=== PATIENT | female | born 1965 | race Caucasian/White ===

== ENCOUNTER 2021-07-03 09:43 | Inpatient (IN) | payer BC, MEDICAID ==
[~2021-07-03] VITALS: Ht 151.1 cm; Wt 48.5 kg
[2021-07-03 09:50] VITALS: BP 135/88
--- NOTE | 2021-07-03 09:55 | NUR ---
PT AMBULATED TO ER BED 2 WITH WOOD FLOORING SPECIALIST.
--- NOTE | 2021-07-03 10:02 | NUR ---
55 Y/O FEMALE BIB DIRECTOR OF REHABILITATION AND WELLNESS (MARIA LUISA OBRIEN). PER DIRECTOR OF REHABILITATION AND WELLNESS PT WAS FOUND ON THE SIDEWALK. DIRECTOR OF REHABILITATION AND WELLNESS REPORTS PT TOLD HIM THAT SHE FELL AND HIT HER HEAD. PT IS A&O X2 TO NAME AND . PT IS CONFUSED AND IS UNABLE TO PROVIDE A HISTORY. PT WALKS WITH A STEADY GAIT. PT DOES HAVE MULTIPLE LACERATIONS ON FACE. BED IN LOWEST POSITION. BED RAIL X1. PMH:UNABLE TO OBTAIN MEDS:UNABLE TO OBTAIN ALLERGIES: UNABLE TO OBTAIN
[2021-07-03 10:45] LABS: BASOPHILS % (AUTO) 0.7 % (0.0-2.0); EOSINOPHILS # (AUTO) 0.2 K/uL (0-0.4); EOSINOPHILS % (AUTO) 6.8 % (0.0-4.0); HEMATOCRIT 37.1 % (36-48); HEMOGLOBIN 12.1 g/dL (12.0-16.0); LYMPHOCYTES # (AUTO) 0.8 K/uL (2.5-16.5); LYMPHOCYTES % (AUTO) 28.8 % (20.5-51.1); MEAN CORPUSCULAR HEMOGLOBIN 28 pg (27-31); MEAN CORPUSCULAR HGB CONC 33 g/dL (33-37); MEAN CORPUSCULAR VOLUME 86.8 fL (80-94); MONOCYTES # (AUTO) 0.6 K/uL (0.8-1.0); MONOCYTES % (AUTO) 22.4 % (1.7-9.3); NEUTROPHILS # (AUTO) 1.1 K/uL (1.8-7.7); NEUTROPHILS % (AUTO) 41.3 % (42.2-75.2); PLATELET COUNT (AUTO) 294 K/uL (140-450); RED BLOOD CELL COUNT(AUTO) 4.28 MIL/uL (4.20-5.40); RED CELL DISTRIBUTION WIDTH 16.6 % (11.6-13.7); WHITE BLOOD COUNT (AUTO) 2.6 K/uL (4.8-10.8)
--- NOTE | 2021-07-03 10:58 | NUR ---
TAKEN TO CT VIA WC
[2021-07-03 11:15] LABS: ALBUMIN 3.2 g/dL (3.4-5.0); ANION GAP 9.8 (8-16); ASPARTATE AMINOTRANSFERASE 97 U/L (15-37); CARBON DIOXIDE 29.6 mmol/L (21-32); CHLORIDE 102 mmol/L (98-107); CREATININE 0.7 mg/dL (0.6-1.3); GFR ARICAN-AMERICAN 112 mL/min (>90); GLUCOSE 89 mg/dL (74-106); POTASSIUM 3.4 mmol/L (3.5-5.1); SODIUM SERUM 138 mmol/L (136-145); TOTAL BILIRUBIN 0.6 mg/dL (0.0-1.0); UREA NITROGEN, BLOOD 13 mg/dL (7-18)
[2021-07-03 11:16] LABS: SALICYLATE < 2.8 mg/dL (2.8-20.0)
[2021-07-03 11:50] LABS: BARBITURATE, URINE NEGATIVE ng/ml (NEG <=200); BENZODIAZEPINE, URINE NEGATIVE ng/mL (NEG <=200); CANNABINOID, URINE NEGATIVE ng/mL (NEG <=50); COCAINE, URINE NEGATIVE ng/mL (NEG <=300); OPIATE, URINE NEGATIVE ng/mL (NEG <=2000); PHENCYCLIDINE SCREEN,URINE NEGATIVE ng/mL (NEG <=25)
[2021-07-03 11:51] LABS: ACETAMINOPHEN < 0.5 ug/ml (10-30)
--- NOTE | 2021-07-03 12:00 | NUR ---
PT ON TELEPSYCH APPT. WITH
--- NOTE | 2021-07-03 13:20 | NUR ---
PT MOVED TO ER BED 5, BED CLOSER TO NURSING STATION.
--- NOTE | 2021-07-03 13:45 | NUR ---
ADAM MEDINA AND TIERNEY WALKED TO LAB
--- NOTE | 2021-07-03 14:01 | NUR ---
TRANSFER OF CARE TO BERTRAND LYNN.
--- NOTE | 2021-07-03 14:04 | NUR ---
ASSUMED CARE AT THIS TIME.
--- NOTE | 2021-07-03 16:00 | NUR ---
PATIENT SITTING QUIETLY IN BED WITH EYES OPEN, WILL CONTINUE TO MONITOR.
--- NOTE | 2021-07-03 18:00 | NUR ---
PATIENT PROVIDED WITH DINNER TRAY, SITTING UP IN BED EATING. WILL CONTINUE TO MONITOR.
--- NOTE | 2021-07-03 19:24 | NUR ---
Pt report given to MARLENY DEE. Transfer of care at this time.
--- NOTE | 2021-07-03 20:01 | NUR ---
Seng tello in EDM - 07/03/21 at 2001 by TRACYJDevin spoke with pt. explained 4010 to and what he should expect. pt denies any si thoughts at this time
--- NOTE | 2021-07-03 20:03 | NUR ---
spoke with pt , pt a&o x2 . pt is verbalizing a word salad . x2 side rails up for safety
--- NOTE | 2021-07-03 23:00 | NUR ---
Patient appears to be resting comfortably in bed. Vital Signs within normal limits. Respirations even and unlabored.
--- NOTE | 2021-07-04 02:45 | NUR ---
pt getting up out of bed. head twitching. pt ambulating. had to redirect pt back to bed. reorient pt with food. pt seems to be content at this time. all needs met at this time
--- NOTE | 2021-07-04 03:26 | NUR ---
Patient appears to be resting awake comfortably in bed. Vital Signs within normal limits. Respirations even and unlabored.
--- NOTE | 2021-07-04 03:55 | NUR ---
PT IS AMBULATING BACK AND FORTH. AGITATED BEHAVIOR. PT IS MAKING SOUNDS
[2021-07-04] MEDS ORDERED: LORazepam 2 MG/ML VIAL IM ONE (04:00)
--- NOTE | 2021-07-04 05:00 | NUR ---
PT BEHACING APPROPRIATELY. NO NEED TO GIVE ATIVAN AT THIS TIME. PT BEHABING APPROPIATELY. SITTING IN BED
--- NOTE | 2021-07-04 06:59 | NUR ---
provided pt with washcloths to wash face .
--- NOTE | 2021-07-04 07:13 | NUR ---
Pt report given to darrick harvey. Transfer of care at this time.
--- NOTE | 2021-07-04 07:23 | NUR ---
RECIEVED REPORT FROM MARLENY DEE. ASSUMED CARE
--- NOTE | 2021-07-04 08:00 | NUR ---
pt awake and restless at this time. pt was given safe tray breakfast at bedside.
--- NOTE | 2021-07-04 08:15 | NUR ---
pt finished complete breakfast at this time. pt resting at this time, unlabored respirations, no visible distress.
[2021-07-04] MEDS ORDERED: OLANZapine 5 MG ODT PO ONE (09:00)
--- NOTE | 2021-07-04 10:00 | NUR ---
PT RE TELEPSYCHED. WILL CONTINUE PT RX OF ZYPREXA AND PLAN ON MOVING PT TO PSYCHIATRIC UNIT.
--- NOTE | 2021-07-04 10:06 | NUR ---
PT RE TELEPSYCHED. WILL CONTINUE PT RX OF ZYPREXA AND PLAN ON MOVING PT TO PSYCHIATRIC UNIT.
[2021-07-04 11:00] VITALS: BP 111/43
--- NOTE | 2021-07-04 11:00 | NUR ---
RECEIVED BEDSIDE REPORT FROM ED NURSE FOR CONTINUITY OF CARE. PT ADAM NEGATIVE. ED NURSE STATED THAT PSYCH EVALUATION PERFORMED IN ED THAT THEY WILL FOND A PSYCH FACILITY TO TRANSFER PATIENT TO FOR CARE. PT AOX1-2. PT IS ON ROOM AIR. PT HAS NO IV. PT BREATHING IS EVEN AND UNLABORED. NO SIGNS OF DISTRESS NOTED. ON MEDSURG. BED LOW AND IN LOCKED POSITION. ALL PRECAUTIONS IN PLACE. PT IS STABLE.
--- NOTE | 2021-07-04 11:00 | NUR ---
Patient will be admitted to care of DR SHASHANK KUMAR. Admited to [facility]. Will go to [facility]. Belongings list completed. Report to DOMENICO LYNN.
[2021-07-04] MEDS ORDERED: HYDROcodone/APAP 7.5/325 MG 1 TAB PO PRN (12:35)
[2021-07-04] MEDS ORDERED: DOCUSATE SODIUM 100 MG GELCAP PO PRN (12:35)
[2021-07-04] MEDS: NACL 0.9% 1,000 ML IV SCH (12:35)
[2021-07-04] MEDS ORDERED: ACETAMINOPHEN 325 MG TAB PO PRN (12:35)
[2021-07-04] MEDS ORDERED: POTASSIUM CHLORIDE 10 MEQ TABER PO PRN (12:35)
[2021-07-04] MEDS ORDERED: ONDANSETRON 4 MG/2 ML VIAL IM/IVP PRN (12:35)
[2021-07-04] MEDS ORDERED: ZOLPIDEM 5 MG TAB PO PRN (12:35)
[2021-07-04] MEDS ORDERED: guaiFENesin DM 200/20 MG-10 ML 10 ML UDC PO PRN (12:35)
[2021-07-04 13:31] LABS: PROTHROMBIN TIME 10.5 secs (10.8-13.4)
--- NOTE | 2021-07-04 14:00 | NUR ---
PT IS SOUND ASLEEP. PT AOX1-2. PT IS ON ROOM AIR. PLACED IV ON RIGHT WRIST 22G. RUNNING NS. PT BREATHING IS EVEN AND UNLABORED. NO SIGNS OF DISTRESS NOTED. ON MEDSURG. BED LOW AND IN LOCKED POSITION. ALL PRECAUTIONS IN PLACE. PT IS STABLE.
[2021-07-04 15:34] LABS: AMYLASE 63 U/L (25-115); CHOL/HDL RATIO 2.6 (1-4.5); FREE T4 (FREE THYROXINE) 1.05 ng/dL (0.76-1.46); HDL CHOLESTEROL 34 mg/dL (40-60); LDL (CALC) 39 mg/dL (60-100); LIPASE 157 U/L (73-393); PHOSPHORUS 4.6 mg/dL (2.5-4.9); THYROID STIMULATING HORMONE 0.54 uIU/mL (0.34-3.74); TRIGLYCERIDES 78 mg/dL (30-150)
[2021-07-04 16:00] VITALS: BP 89/49
--- NOTE | 2021-07-04 18:24 | NUR ---
PT IS NOW MORE AWAKE. STATES SHE DOES NOT WANT TO BE HERE AND NEEDS TO LEAVE. PT AOX2. PT IS ON ROOM AIR. IV ON RIGHT WRIST 22G. RUNNING NS. PT BREATHING IS EVEN AND UNLABORED. NO SIGNS OF DISTRESS NOTED. ON MEDSURG. BED LOW AND IN LOCKED POSITION. ALL PRECAUTIONS IN PLACE. PT IS STABLE.
[2021-07-04 19:27] LABS: APPEARANCE,URINE CLEAR (CLEAR); BILIRUBIN,URINE NEGATIVE (NEGATIVE); BLOOD, URINE NEGATIVE (NEGATIVE); COLOR,URINE YELLOW (YELLOW); LEUKOCYTE ESTERASE ,URINE TRACE (NEGATIVE); NITRITE, URINE NEGATIVE (NEGATIVE); UGLUCOSE NEGATIVE (NEGATIVE)
--- NOTE | 2021-07-04 19:40 | NUR ---
PT ENDORSED TO SPOT WASHER FOR CONTINUITY OF CARE. POC DISCUSSED.
--- NOTE | 2021-07-04 19:41 | NUR ---
RECEIVED REPORT FROM MORNING SHIFT NURSE. PATIENT AWAKE AMBULATING AROUND HER ROOM. NO ACUTE DISTRESS. BREATHING REGULAR NON LABORED. SAFETY MEASURES IN PLACE. NO COMPLAINTS OF PAIN AT THIS TIME. WILL CONTINUE TO MONITOR PT.
[2021-07-04 20:30] LABS: RBC,URINE 0-5 /HPF (0-5); WBC,URINE 0-5 /HPF (0-5)
--- NOTE | 2021-07-04 23:00 | NUR ---
CHECKED PATIENT, PT IS SLEEPING. OBSERVED CHEST RISE AND FALL SYMMETRICALLY. WITH 1:1 SITTER.
--- NOTE | 2021-07-04 23:54 | NUR ---
Call center at this time still looking for placement , At this time there are no vacancy at any of the designated facilities will continue to make calls then notify ER when placement is found .
--- NOTE | 2021-07-05 01:11 | NUR ---
PATIENT IS AWAKE, PULLED OUT HER IV LINE. REFUSED REINSERTION.
[2021-07-05 01:15] VITALS: BP 105/64
--- NOTE | 2021-07-05 03:50 | NUR ---
PATIENT IS SLEEPING. CHEST RISE AND FALL SYMMETRICALLY. IN LOW BED POSITION.
[2021-07-05] MEDS: NACL 0.9% 1,000 ML IV SCH (05:15)
[2021-07-05 06:48] LABS: ANION GAP 9.4 (8-16); CARBON DIOXIDE 26.5 mmol/L (21-32); CREATININE 0.6 mg/dL (0.6-1.3); POTASSIUM 3.9 mmol/L (3.5-5.1)
[2021-07-05 06:49] LABS: BASOPHILS % (AUTO) 0.4 % (0.0-2.0); EOSINOPHILS # (AUTO) 0.2 K/uL (0-0.4); EOSINOPHILS % (AUTO) 3.9 % (0.0-4.0); HEMATOCRIT 34.7 % (36-48); HEMOGLOBIN 11.3 g/dL (12.0-16.0); LYMPHOCYTES # (AUTO) 1.4 K/uL (2.5-16.5); LYMPHOCYTES % (AUTO) 35.4 % (20.5-51.1); MEAN CORPUSCULAR HEMOGLOBIN 28 pg (27-31); MEAN CORPUSCULAR HGB CONC 33 g/dL (33-37); MEAN CORPUSCULAR VOLUME 87.6 fL (80-94); MONOCYTES # (AUTO) 0.8 K/uL (0.8-1.0); MONOCYTES % (AUTO) 21.5 % (1.7-9.3); NEUTROPHILS # (AUTO) 1.5 K/uL (1.8-7.7); NEUTROPHILS % (AUTO) 38.8 % (42.2-75.2); PLATELET COUNT (AUTO) 268 K/uL (140-450); RED BLOOD CELL COUNT(AUTO) 3.96 MIL/uL (4.20-5.40); RED CELL DISTRIBUTION WIDTH 16.5 % (11.6-13.7); WHITE BLOOD COUNT (AUTO) 3.9 K/uL (4.8-10.8)
--- NOTE | 2021-07-05 07:24 | NUR ---
ENDORSED PATIENT TO AM NURSE FOR CONTINUITY OF CARE IN STABLE CONDITION.
[2021-07-05 08:00] VITALS: BP 112/74
[2021-07-05] MEDS ORDERED: PANTOPRAZOLE 40 MG TABEC PO SCH (09:00)
--- NOTE | 2021-07-05 09:10 | NUR ---
PATIENT HAS BEEN CATEGORIZED LOW RISK DUE TO 5150 STATUS. PATIENT WILL BE SEEN WITHIN 7 DAYS FROM ADMISSION. 07/10/[address]
[2021-07-05] MEDS ORDERED: CEPH-588 PO (13:30)
[2021-07-05 14:40] VITALS: BP 112/74
--- NOTE | 2021-07-05 14:44 | NUR ---
JESIKA FAXED 5150 PACKET TO [facility] FOR PSYCH PLACEMENT. MOHSEN AT [facility] REPORTED THAT THEY RECEIVED PACKET AND ASKED THAT VITAL BE SENT OVER. JESIKA FAXED OVER VITALS TO THE NUMBER PROVIDED BY MOHSEN AT [phone]. [facility] REPORTED THAT THEY WERE REVIEWING PACKET AND WOULD BE IN TOUCH WITH SW TO CONFIRM PLACEMENT. JESIKA RECEIVED PHONE CALL FROM DENISE AT [facility] ([place]) WHO REPORTED THAT THEY WOULD BE ACCEPTING PATIENT. DENISE PROVIDED SW WITH ADDRESS TO FACILITY:[address] [place] [id number]. DENISE REPORTED THAT PATIENT WILL BE GOING TO UNIT [address] BED [address] AND ACCEPTING PHYSICIAN DR. GILES. REPORTING PHONE NUMBER FOR NURSE PROVIDED IS [phone] 211PM: JESIKA CONTACTED [facility] AND SPOKE WITH KANE TO ARRANGE FOR TRANSPORT. JESIKA PROVIDED [facility] WITH ALL NECESSARY INFORMATION. [facility] REPORTED THAT THEY WOULD ARRIVE WITHIN 30 MIN SW SPOKE WITH NURSE TO PROVIDE REPORTING NUMBER [phone]
--- NOTE | 2021-07-05 23:12 | NUR ---
Late note: Intake information with updated coverage has been faxed to the following facilities for review for placement
--- NOTE | 2021-07-05 23:14 | NUR ---
Lolly Pina/ [facility]/ Charo Ryan/ [facility]/ Cassi Avalos/ Gabriel Lo/ Jen Hopkins
== END 2021-07-05 12:25 | disposition short-term general hospital (02) | DRG 52 ==
LOC: MED 09:43 → MTU 07-04 10:04
PROVIDERS: ADMIT Family Medicine; ATTEND Family Medicine
DX: G92.9 Unspecified toxic encephalopathy (principal); E44.1 Mild protein-calorie malnutrition; E86.0 Dehydration; F15.10 Other stimulant abuse, uncomplicated; N39.0 Urinary tract infection, site not specified; E87.6 Hypokalemia; Z20.822 Contact with and (suspected) exposure to COVID-19; S00.81XA Abrasion of other part of head, initial encounter; F15.159 Other stimulant abuse with stimulant-induced psychotic disorder, unspecified; F17.210 Nicotine dependence, cigarettes, uncomplicated; F23 Brief psychotic disorder; E78.5 Hyperlipidemia, unspecified; W18.39XA Other fall on same level, initial encounter; Y93.89 Activity, other specified; Y92.89 Other specified places as the place of occurrence of the external cause; Y99.8 Other external cause status; Z59.00 Homelessness unspecified; Z68.21 Body mass index [BMI] 21.0-21.9, adult
CPT/HCPCS: 36415; 70450; 71045; 80048; 80053; 80305; 81001; 82150; 83036; 83690; 83735; 83880; 84100; 84436; 84439; 84443; 84479; 84484; 85025; 85610; 85730; 87081; 87086; 87635-QW; 93005; 99285; C9803-CS; G0480; G0482; U0003